=== PATIENT | male | born 2005 ===

== ENCOUNTER 2024-03-16 02:52 | Emergency (ER) | payer SELFPAY ==
[~2024-03-16] VITALS: Ht 172.7 cm; Wt 69.1 kg
[2024-03-16] MEDS ORDERED: Acetaminophen 325 MG TAB PO ONE (04:30)
[2024-03-16] MEDS ORDERED: Lidocaine PF 2% (20 MG/ML) 2 ML VIAL IH ONE (04:45)
[2024-03-16 06:14] VITALS: BP 120/80; PULSE 85; TEMP 98.3
== END 2024-03-16 06:14 | disposition home or self-care (01) ==
LOC: COL.ER 02:52
DX: S01.81XA Laceration without foreign body of other part of head, initial encounter (principal); F17.200 Nicotine dependence, unspecified, uncomplicated; Z23 Encounter for immunization; W01.110A Fall on same level from slipping, tripping and stumbling with subsequent striking against sharp glass, initial encounter